=== PATIENT | female | born 1980 | race Caucasian/White ===

== ENCOUNTER 2016-08-17 09:12 | Emergency (ER) | payer SELFPAY ==
[~2016-08-17] VITALS: Ht 180.3 cm; Wt 100.7 kg
[2016-08-17 09:28] VITALS: BP 160/115
--- NOTE | 2016-08-17 09:34 | NUR ---
Patient ambulated to bed 8. RN evaluating patient at bedside.
--- NOTE | 2016-08-17 09:35 | NUR ---
36/F BIB SELF C/O TAMPON STUCK IN VAGINA X 2 DAYS.PT DENIES ANY PAIN ,N/V/D; SKIN IS PINK/WARM/DRY; AAOX4 WITH EVEN AND STEADY GAIT; LUNGS CLEAR BL; HR EVEN AND REGULAR; PT DENIES ANY FEVER, CP OR SOB AT THIS TIME; PATIENT STATES PAIN OF 0/10 AT THIS TIME. PATIENT POSITIONED FOR COMFORT; HOB ELEVATED; BEDRAILS UP X2; BED DOWN. ER MD MADE AWARE OF PT STATUS.
--- NOTE | 2016-08-17 09:38 | NUR ---
Dr. Stout evaluating patient at bedside.
[2016-08-17 09:54] VITALS: BP 154/93
--- NOTE | 2016-08-17 09:54 | NUR ---
Note undone in EDM - 08/17/16 at 1003 by [facility] Patient discharged with BP 154/93;NO S/S OF HEADACHE OR DIZZINESS;ER MD DR AMAYA AWARE. Written and verbal after care instructions given and explained. Patient verbalized understanding. Ambulatory with steady gait. All questions addressed prior to discharge. Advised to follow up with PMD.
== END 2016-08-17 09:54 | disposition home or self-care (01) ==
LOC: MED 09:12
DX: T19.2XXA Foreign body in vulva and vagina, initial encounter (principal); I10 Essential (primary) hypertension; Z85.41 Personal history of malignant neoplasm of cervix uteri; Z98.890 Other specified postprocedural states; X58.XXXA Exposure to other specified factors, initial encounter; Y93.89 Activity, other specified; Y92.89 Other specified places as the place of occurrence of the external cause; Y99.8 Other external cause status
CPT/HCPCS: 99283; 99284